=== PATIENT | female | born 1985 | race Caucasian/White ===

== ENCOUNTER 2018-12-27 15:49 | Emergency (ER) | payer OTHER ==
[2018-12-27 16:07] LABS: BASOPHILS # (AUTO) 0.1 10^3/uL (0.0-0.1); BASOPHILS % (AUTO) 1.1 %; EOSINOPHILS # (AUTO) 0.3 10^3/uL (0.0-0.7); EOSINOPHILS % (AUTO) 3.6 %; HGB - HEMOGLOBIN 12.3 g/dL (12.0-16.0); LYMPHOCYTES # (AUTO) 1.9 10^3/uL (1.5-3.5); MEAN CORPUSCULAR HEMOGLOBIN 30.5 pg (27.0-31.0); MEAN CORPUSCULAR HGB CONC 32.3 g/dL (32.0-36.0); MEAN CORPUSCULAR VOLUME 94.5 fL (81.0-99.0); MONOCYTES # (AUTO) 0.5 10^3/uL (0.0-1.0); MONOCYTES % (AUTO) 7.7 %; NEUTROPHILS # (AUTO) 4.2 10^3/uL (1.5-6.6); NEUTROPHILS % (AUTO) 60.3 %; PLT - PLATELET COUNT 321 10^3/uL (130-450); RED BLOOD COUNT 4.03 10^6/uL (4.20-5.40); RED CELL DISTRIBUTION WIDTH 11.5 % (12.0-15.0)
[2018-12-27 16:20] LABS: ALBUMIN 4.2 g/dL (3.2-5.5); ALBUMIN/GLOBULIN RATIO 1.1 (1.0-2.2); BILIRUBIN,TOTAL 0.4 mg/dL (0.2-1.0); CALCIUM 9.1 mg/dL (8.5-10.3); CREATININE 0.8 mg/dL (0.4-1.0); TOTAL PROTEIN 7.9 g/dL (6.7-8.2)
[2018-12-27] MEDS ORDERED: KETOROLAC 30 MG/ML VIAL IVP STA (16:36)
--- NOTE | 2018-12-27 16:39 | ED Physician Documentation ---
PD HPI ABD PAIN - Stated complaint Stated Complaint: SEVERE ABD PX - Chief complaint Chief Complaint: Abd Pain - History obtained from History obtained from: Patient - History of Present Illness Timing - onset: How many days ago (3) Timing - duration: Days (3) Timing - details: Abrupt onset Quality: Stabbing Location: Epigastric Radiation: Upper back Improved by: Other (nothing) Worsened by: Eating Associated symptoms: No: Fever, Nausea, Vomiting, Hematemesis, Diarrhea, Constipation, Melena, Hematochezia, Dysuria, Hematuria, Chest pain, Dizzy, Near syncope / syncope, Vaginal bleeding Similar symptoms before: Diagnosis (hx of gallstones) Recently seen: Not recently seen - Treatment prior to arrival Treatment prior to arrival: tylenol which did not improve her symptoms Review of Systems Ten Systems: 10 systems reviewed and negative Constitutional: denies: Fever, Chills Cardiac: reports: Reviewed and negative Respiratory: reports: Reviewed and negative GI: reports: Abdominal Pain. denies: Nausea, Vomiting, Diarrhea, Hematemesis, Bloody / black stool : denies: Dysuria, Frequency, Hesitancy Skin: reports: Reviewed and negative Neurologic: reports: Reviewed and negative Endocrine: reports: Reviewed and negative Immunocompromised: reports: Reviewed and negative PD PAST MEDICAL HISTORY - Past Medical History Past Medical History: Yes GI: Other (hx of gallstones once ) - Present Medications Home Medications: Ambulatory Orders Medication Instructions Recorded Confirmed Norgestimate-Ethinyl Estradiol 12/27/18 [Ortho Tri-Cyclen 28 Tablet] - Allergies Allergies/Adverse Reactions: Allergies Allergy/AdvReac Type Severity Reaction Status Date / Time No Known Drug Allergies Allergy Verified 12/27/18 15:52 PD ED PE NORMAL - Vitals Vital signs reviewed: Yes - General General: Alert and oriented X 3, No acute distress, Well developed/nourished - HEENT HEENT: Atraumatic, Pharynx benign - Neck Neck: Supple, no meningeal sign, No JVD - Cardiac Cardiac: RRR - Respiratory Respiratory: No respiratory distress - Abdomen Abdomen: Soft, Non distended, Other (mild epigastric tenderness) - Female Female : Deferred - Rectal Rectal: Deferred - Derm Derm: Normal color, Warm and dry, No rash - Extremities Extremities: No edema - Neuro Neuro: Alert and oriented X 3 Eye Opening: Spontaneous Motor: Obeys Commands Verbal: Oriented GCS Score: 15 - Psych Psych: Normal mood, Normal affect Results - Vitals Vitals: Vital Signs - 24 hr 12/27/18 12/27/18 15:52 16:41 Temperature 37 C Heart Rate 74 64 Respiratory 15 16 Rate Blood Pressure 124/75 122/86 H O2 Saturation 98 98 Oxygen O2 Source Room air - Labs Labs: Laboratory Tests 12/27/18 12/27/18 12/27/18 16:00 16:00 16:30 WBC 7.0 RBC 4.03 L Hgb 12.3 Hct 38.1 MCV 94.5 MCH 30.5 MCHC 32.3 RDW 11.5 L Plt Count 321 MPV 9.0 Neut # (Auto) 4.2 Lymph # (Auto) 1.9 [place] # (Auto) 0.5 Eos # (Auto) 0.3 Baso # (Auto) 0.1 Absolute Nucleated RBC 0.00 Nucleated RBC % 0.0 Sodium 139 Potassium 4.0 Chloride 102 Carbon Dioxide 29 Anion Gap 8.0 BUN 19 Creatinine 0.8 Estimated GFR (MDRD) 83 L Glucose 114 H Calcium 9.1 Total Bilirubin 0.4 AST 16 ALT 13 Alkaline Phosphatase 41 L Total Protein 7.9 Albumin 4.2 Globulin 3.7 Albumin/Globulin Ratio 1.1 Lipase 33 Urine Color YELLOW Urine Clarity CLEAR Urine pH 6.0 Ur Specific [place] 1.025 Urine Protein NEGATIVE Urine Glucose (UA) NEGATIVE Urine Ketones NEGATIVE Urine Occult Blood NEGATIVE Urine Nitrite NEGATIVE Urine Bilirubin NEGATIVE Urine Urobilinogen 0.2 (NORMAL) Ur Leukocyte Esterase NEGATIVE Ur Microscopic Review NOT INDICATED Urine Culture Comments NOT INDICATED Urine HCG, Qual NEGATIVE PD MEDICAL DECISION MAKING - ED course Complexity details: reviewed results, re-evaluated patient, considered differential, d/w patient ED course: ddx- UTI, kidney stone, gastritis, , cholelithiasis, cholecystitis, pancreatitis 33 y/o F with hx of gallstones, today returns for evaluation of possible gallstones, epigastric pain for 3 days radiating to the back. My bedside US is limited here, will obtain radiology US. Labs are stable. HCG negative and UA neg. Lipase negative Pt given toradol for pain and US is pending. Suspect cholelithiasis vs gastritis Signed out patient's care to Dr. Juárez with US result pending Departure - Departure Clinical Impression: Abdominal pain Qualifiers: Abdominal location: epigastric Qualified Code(s): R10.13 - Epigastric pain Condition: Stable Record reviewed to determine appropriate education?: Yes Follow-Up: Huseyin Trinidad ARNP [Primary Care Provider] - As Needed
[2018-12-27 17:15] LABS: BILIRUBIN,URINE NEGATIVE (NEGATIVE); GLUCOSE, URINE (UA) NEGATIVE (NEGATIVE); KETONES,URINE (UA) NEGATIVE (NEGATIVE); LEUKOCYTE ESTERASE, URINE NEGATIVE (NEGATIVE); NITRITE,URINE NEGATIVE (NEGATIVE); OCCULT BLOOD,URINE NEGATIVE (NEGATIVE); PROTEIN,URINE NEGATIVE (NEGATIVE); UROBILINOGEN,URINE 0.2 (NORMAL) E.U./dL (NORMAL)
[2018-12-27 17:17] LABS: CLARITY,URINE CLEAR (CLEAR)
[2018-12-27 17:18] LABS: HCG UR QUAL NEGATIVE
--- NOTE | 2018-12-27 20:02 | Ultrasound Report ---
Reason: RUQ pain, possible cholecystitis Procedure Date: 12/27/2018 Accession Number: [id number] / [id number] Procedure: US - Abdomen Limited CPT Code: FULL RESULT: EXAM: ABDOMEN ULTRASOUND LIMITED, RUQ EXAM DATE: 12/27/2018 07:32 PM. CLINICAL HISTORY: RUQ pain, possible cholecystitis. COMPARISON: None. TECHNIQUE: Real-time scanning was performed with static images obtained. FINDINGS: Liver: Heterogeneous echotexture. Left lower lobe cyst measures 1.1 cm. 14.8 cm. Main portal vein flow: Hepatopetal. Gallbladder: No stones. Wall measures 3 mm. Unable to assess Morrison's sign due to patient being on pain medications. Biliary System: CBD measures 3 mm. No intrahepatic or extrahepatic ductal dilatation. Other: Right kidney measures 10.9 cm, without hydronephrosis. IMPRESSION: 1. Heterogeneous liver echotexture, query underlying liver process. 2. No cholelithiasis. RADIA
--- NOTE | 2018-12-27 21:11 | ED Physician Documentation ---
ED Addendum - Addendum Addendum: 12/27/18 21:09 Pain resolved in the emergency department. No acute findings on ultrasound other than a heterogeneous liver echotexture. She will follow-up with her doctor for further care including EGD and HIDA scan. 1. Heterogeneous liver echotexture, query underlying liver process. 2. No cholelithiasis. Departure - Departure Disposition: Home, Self Care Clinical Impression: Abdominal pain Qualifiers: Abdominal location: epigastric Qualified Code(s): R10.13 - Epigastric pain Condition: Stable Instructions: ED Abdominal Pain Unkn Cause Follow-Up: Huseyin Trinidad ARNP [Primary Care Provider] - Within 1 week Prescriptions: Meloxicam [Mobic] 7.5 mg PO BID PRN #20 tablet PRN Reason: Pain Comments: You should talk with your doctor about a HIDA scan as well as an EGD. You also have heterogeneous echotexture to your liver, this is of uncertain significance.
[2018-12-27 21:25] VITALS: BP 112/77
== END 2018-12-27 21:20 | disposition home or self-care (01) ==
LOC: ED 15:49
DX: R10.13 Epigastric pain (principal)
CPT/HCPCS: 36415; 76705; 80053; 81001; 81003; 81025; 83690; 85025; 87086; 96374; 99284

== ENCOUNTER 2020-01-02 09:28 | Emergency (ER) | payer OTHER ==
[2020-01-02 09:38] VITALS: BP 118/78
--- NOTE | 2020-01-02 09:39 | ED Physician Documentation ---
PD HPI OPHTHO - Stated complaint Stated Complaint: L EYE PX - Chief complaint Chief Complaint: Heent - History obtained from History obtained from: Patient - History of Present Illness Timing - onset: Today Timing - details: Abrupt onset, Still present Location: Left Quality / character: Aching, Throbbing Associated symptoms: Tearing, FB sensation. No: Redness, Swelling, Discharge Contributing factors: Blunt trauma (her dog reached paw up quickly and struck patient in the left eye. Feeling of scratch on the eye.). No: Wears contacts Similar symptoms before: Has not had sx before Review of Systems Constitutional: denies: Fever Eyes: reports: Decreased vision (somewhat blurred). denies: Loss of vision, Photophobia Nose: denies: Rhinorrhea / runny nose, Congestion Throat: denies: Sore throat Respiratory: denies: Cough PD PAST MEDICAL HISTORY - Past Medical History Past Medical History: No GI: Other - Present Medications Home Medications: Ambulatory Orders Medication Instructions Recorded Confirmed Meloxicam [Mobic] 7.5 mg PO BID PRN #20 tablet 12/27/18 Norgestimate-Ethinyl Estradiol 12/27/18 [Ortho Tri-Cyclen 28 Tablet] Erythromycin Base [Erythromycin 1 applic OP QID #3.5 oint...g. 01/02/20 Ophthalmic Ointment] - Allergies Allergies/Adverse Reactions: Allergies Allergy/AdvReac Type Severity Reaction Status Date / Time No Known Drug Allergies Allergy Verified 01/02/20 09:38 - Social History Does the pt smoke?: No Smoking Status: Never smoker PD ED PE NORMAL - Vitals Vital signs reviewed: Yes - General General: Alert and oriented X 3, No acute distress, Well developed/nourished - HEENT HEENT: PERRL, EOMI PD ED PE EXPANDED - Eyes Eyes: Corneal abrasion (over the iris at the 6 o'clock position), Fluorescein uptake, Anterior chambers clear, Normal fundi. No: Corneal FB, Hyphema Results - Vitals Vitals: Vital Signs - 24 hr 01/02/20 09:30 Temperature 37 C Heart Rate 76 Respiratory 16 Rate Blood Pressure 118/78 O2 Saturation 100 Oxygen O2 Source Room air PD MEDICAL DECISION MAKING - ED course Complexity details: considered differential (feels better with proparacaine. No FB seen. Abrasion is superficial. ), d/w patient Departure - Departure Disposition: Home, Self Care Clinical Impression: Corneal abrasion Qualifiers: Encounter type: initial encounter Laterality: left Qualified Code(s): S05.02XA - Injury of conjunctiva and corneal abrasion without foreign body, left eye, initial encounter Condition: Stable Record reviewed to determine appropriate education?: Yes Instructions: ED Eye Injury Corneal Abrasion Follow-Up: [facility] [Provider Group] Prescriptions: Erythromycin Base [Erythromycin Ophthalmic Ointment] 1 applic OP QID #3.5 oint...g. Comments: There is a small patch of abrasion on the anterior part of the eye. It does not appear deep. This should heal up over the next couple of days. You can use some lubricating eyedrops or the antibiotic ointment on the eye to help soothe and coat the surface. This will decrease symptoms. Also you can use ibuprofen or Aleve and add Tylenol if needed for the pains. I would anticipate improvement through the day into tomorrow and resolution by couple of days. Recheck if not improving in that timeframe. Discharge Date/Time: 01/02/20 10:27
[2020-01-02] MEDS ORDERED: PROPARACAINE 0.5% OPHTH DROPS 15 ML LEFTEYE STA (09:42)
[2020-01-02] MEDS ORDERED: IBUPROFEN 600 MG TABLET PO STA (10:08)
[2020-01-02] MEDS ORDERED: ERYTHROMYCIN OPHTH OINT 1 GM TUBE LEFTEYE STA (10:08)
== END 2020-01-02 10:27 | disposition home or self-care (01) ==
LOC: ED 09:28
DX: S05.02XA Injury of conjunctiva and corneal abrasion without foreign body, left eye, initial encounter (principal); W54.1XXA Struck by dog, initial encounter
CPT/HCPCS: 99282; 99283; A9270; J3490